=== PATIENT | male | born 1995 | race African-American/Black ===

== ENCOUNTER 2020-12-13 20:33 | Inpatient (IN) ==
[2020-12-13] MEDS ORDERED: DIPH/TET/ACEL PERT BOOSTER VACCINE 0.5 ML VIAL IM ONE (20:41)
[2020-12-13] MEDS ORDERED: ONDANSETRON 4 MG/2 ML VIAL IV STA (20:41)
[2020-12-13] MEDS ORDERED: HYDROmorphone 2 MG/1 ML VIAL IV STA (20:41)
[2020-12-13] MEDS ORDERED: ceFAZolin 1,000 MG VIAL ONE ×2 (20:42→21:27)
[2020-12-13] MEDS ORDERED: HYDROmorphone 2 MG/1 ML VIAL ONE (20:42)
[2020-12-13] MEDS ORDERED: ONDANSETRON 4 MG/2 ML VIAL ONE ×2 (20:42→21:05)
[2020-12-13] MEDS ORDERED: LACTATED RINGERS 1,000 ML IV ONE (20:42)
[2020-12-13 20:48] LABS: Basophils # 0.1 10*3/uL (0.0-0.2); Basophils % 0.5 % (0.0-0.8); Eosinophils # 0.2 10*3/uL (0.0-0.87); Hematocrit 46.4 VOL% (42.0-52.0); Hemoglobin 14.6 GM/DL (14.0-18.0); Immature Granulocytes % 0.6 %; Immature Granulocytes Absolute 0.07 #; Lymphocytes # 6.3 10*3/uL (1.4-4.0); Lymphocytes % 58.4 % (21.2-54.2); Mean Corpuscular HGB Conc 31.5 GM/DL (32-36); Mean Corpuscular Volume 92.6 FL (87-102); Mean Platelet Volume 10.3 FL (9.6-12.0); Neutrophils % 32.5 % (38.7-73.9); Platelet Count 349 T/CUMM (130-400); Red Blood Count 5.01 MC/CUMM (3.8-5.5); Red Cell Distribution Width 12.7 % (9.3-17.3); White Blood Count 10.8 T/CUMM (4-12)
[2020-12-13 20:55] LABS: PT Patient Result 10.9 SECS (10.5-12.0); Partial Thromboplastin Time 20.5 SECS (23.9-33.8)
[2020-12-13] MEDS ORDERED: hydrALAZINE 20 MG/1 ML VIAL IV STA (20:57)
[2020-12-13] MEDS ORDERED: hydrALAZINE 20 MG/1 ML VIAL ONE (20:57)
[2020-12-13] MEDS ORDERED: fentaNYL 100 MCG/2 ML VIAL ONE ×2 (21:02→21:36)
[2020-12-13] MEDS ORDERED: MIDAZOLAM 2 MG/2 ML VIAL ONE (21:02)
[2020-12-13 21:04] LABS: Alanine Aminotransferase 25 U/L (16-61); Albumin 4.4 G/DL (3.4-5.0); Alkaline Phosphatase 61 U/L (45-117); Aspartate Amino Transferase 12 U/L (0-37); Blood Urea Nitrogen 18 MG/DL (7-18); Carbon Dioxide 21 MMOL/L (21-32); Estimated Glom Filtration Rate 130 ML/MIN; Glucose 120 MG/DL (74-106); Osmolality,Calculated 279.5 MOS/KG (273-304); Potassium 3.2 MMOL/L (3.5-5.1); Sodium 139 MMOL/L (136-145); Total Protein 8.2 G/DL (6.4-8.2)
[2020-12-13] MEDS ORDERED: DEXAMETHASONE 4 MG/1 ML VIAL ONE (21:05)
[2020-12-13] MEDS ORDERED: ROCURONIUM 50 MG/5 ML VIAL IV ONE (21:05)
[2020-12-13] MEDS ORDERED: ETOMIDATE 40 MG/20 ML VIAL IV ONE (21:05)
[2020-12-13] MEDS ORDERED: SODIUM CHLORIDE 0.9% 1,000 ML IV ONE (21:05)
[2020-12-13] MEDS ORDERED: LIDOCAINE 2% 5 ML VIAL ONE (21:05)
[2020-12-13] MEDS ORDERED: SUCCINYLCHOLINE 200 MG/10 ML VIAL ONE (21:05)
[2020-12-13 21:10] LABS: Eosinophils 1 % (0-10); Lymphocytes 59 % (20-55); Platelet Estimate Normal; Reactive Lymphocytes 2+; Segmented Neutrophils 33 % (50-85); Total Cells Counted 100
[2020-12-13 21:12] LABS: Bilirubin,Urine Negative (Negative); Blood, Urine Negative (Negative); Glucose,Urine (UA) Negative (Negative); Hyaline Casts,Urine 7 /LPF (0-3); Ketones,Urine 20 mg/dL (Negative); Mucus,Urine Few /LPF (Occasional); Nitrite,Urine Negative (Negative); Protein,Urine 30 MG/DL; Squamous Epithelial Cell,Urine Occasional /HPF (0-10); Urine Appearance CLEAR (Clear); Urine Color Yellow (Yellow); Urine Specific Gravity 1.028 (1.001-1.035)
[2020-12-13] MEDS ORDERED: SODIUM CHLORIDE 0.9% 1,000 ML IV PRN (21:12)
[2020-12-13] MEDS ORDERED: ACETAMINOPHEN 325 MG TABLET PO PRN (21:14)
[2020-12-13 21:28] LABS: Barbiturates Screen,Urine Negative (Negative); Benzodiazepines Screen,Urine Negative (Negative); Cannabinoid Screen,Urine Positive (Negative); Opiate Screen,Urine Negative (Negative); Phencyclidine Screen,Urine Negative (Negative)
[2020-12-13] MEDS ORDERED: SUGAMMADEX 200 MG/2 ML VIAL IV ONE (22:00)
[2020-12-13] MEDS ORDERED: ONDANSETRON 4 MG/2 ML VIAL IV PRN (22:20)
[2020-12-13] MEDS: HYDROmorphone 2 MG/1 ML VIAL IV PRN ×4 (22:25→22:40)
[2020-12-13] MEDS ORDERED: propofoL 200 MG/20 ML VIAL IV ONE (22:28)
[2020-12-13] MEDS: PIPERACILLIN/TAZOBACTAM 3,375 MG in SODIUM CHLORIDE 0.9% 100 ML IV SCH (23:50)
[2020-12-13] MEDS: DEXTROSE 5% LACTATED RINGERS 1,000 ML IV SCH (23:50)
[2020-12-14] MEDS: HYDROmorphone 2 MG/1 ML VIAL IV PRN ×4 (05:08→21:25)
[2020-12-14 07:10] LABS: Basophils % 0.1 % (0.0-0.8); Hematocrit 44.3 VOL% (42.0-52.0); Hemoglobin 14.1 GM/DL (14.0-18.0); Immature Granulocytes % 0.4 %; Immature Granulocytes Absolute 0.05 #; Lymphocytes # 1.2 10*3/uL (1.4-4.0); Lymphocytes % 9.3 % (21.2-54.2); Mean Corpuscular HGB Conc 31.8 GM/DL (32-36); Mean Corpuscular Volume 91.3 FL (87-102); Mean Platelet Volume 9.6 FL (9.6-12.0); Monocytes % 7.5 % (1.7-12.7); Neutrophils % 82.7 % (38.7-73.9); Platelet Count 373 T/CUMM (130-400); Red Blood Count 4.85 MC/CUMM (3.8-5.5); Red Cell Distribution Width 12.7 % (9.3-17.3); White Blood Count 13.1 T/CUMM (4-12)
[2020-12-14 07:39] LABS: Calcium 8.9 MG/DL (8.5-10.1); Osmolality,Calculated 277.5 MOS/KG (273-304)
[2020-12-14] MEDS: PANTOPRAZOLE 40 MG TABLET PO SCH (08:12)
[2020-12-14] MEDS: DOCUSATE SODIUM 100 MG CAPSULE PO SCH ×2 (08:12→21:27)
[2020-12-14] MEDS: PIPERACILLIN/TAZOBACTAM 3,375 MG in SODIUM CHLORIDE 0.9% 100 ML IV SCH ×3 (10:28→23:30)
[2020-12-14] MEDS: ONDANSETRON 4 MG/2 ML VIAL IV PRN ×2 (13:33→21:26)
[2020-12-14] MEDS: METHOCARBAMOL INJ 1,000 MG in SODIUM CHLORIDE 0.9% 100 ML IV SCH ×2 (15:03→21:30)
[2020-12-14] MEDS: DEXTROSE 5% LACTATED RINGERS 1,000 ML IV SCH ×2 (21:31→23:13)
[2020-12-15] MEDS: HYDROmorphone 2 MG/1 ML VIAL IV PRN ×4 (05:06→19:30)
[2020-12-15] MEDS: METHOCARBAMOL INJ 1,000 MG in SODIUM CHLORIDE 0.9% 100 ML IV SCH ×3 (05:06→21:36)
[2020-12-15] MEDS: DEXTROSE 5% LACTATED RINGERS 1,000 ML IV SCH ×2 (05:10→23:52)
[2020-12-15] MEDS: ONDANSETRON 4 MG/2 ML VIAL IV PRN ×2 (05:15→11:11)
[2020-12-15] MEDS: PANTOPRAZOLE 40 MG TABLET PO SCH (08:13)
[2020-12-15] MEDS: DOCUSATE SODIUM 100 MG CAPSULE PO SCH ×2 (08:13→21:28)
[2020-12-15] MEDS: PIPERACILLIN/TAZOBACTAM 3,375 MG in SODIUM CHLORIDE 0.9% 100 ML IV SCH ×3 (08:13→23:52)
[2020-12-15] MEDS ORDERED: ONDANSETRON 4 MG/2 ML VIAL IV PRN (11:24)
[2020-12-15] MEDS: hydrALAZINE 20 MG/1 ML VIAL IV PRN (12:03)
[2020-12-16] MEDS: METHOCARBAMOL INJ 1,000 MG in SODIUM CHLORIDE 0.9% 100 ML IV SCH ×3 (05:22→21:25)
[2020-12-16] MEDS: DEXTROSE 5% LACTATED RINGERS 1,000 ML IV SCH ×3 (05:41→21:24)
[2020-12-16] MEDS: PANTOPRAZOLE 40 MG TABLET PO SCH (08:07)
[2020-12-16] MEDS: DOCUSATE SODIUM 100 MG CAPSULE PO SCH ×2 (08:07→21:00)
[2020-12-16] MEDS: HYDROmorphone 2 MG/1 ML VIAL IV PRN ×3 (08:23→19:08)
[2020-12-16] MEDS: PIPERACILLIN/TAZOBACTAM 3,375 MG in SODIUM CHLORIDE 0.9% 100 ML IV SCH ×2 (08:24→15:19)
[2020-12-16 12:16] LABS: Basophils % 0.5 % (0.0-0.8); Eosinophils # 0.2 10*3/uL (0.0-0.87); Eosinophils % 2.4 % (0.00-10.9); Hematocrit 42.5 VOL% (42.0-52.0); Hemoglobin 13.7 GM/DL (14.0-18.0); Immature Granulocytes % 0.3 %; Immature Granulocytes Absolute 0.02 #; Lymphocytes # 1.9 10*3/uL (1.4-4.0); Lymphocytes % 29.7 % (21.2-54.2); Mean Corpuscular HGB Conc 32.2 GM/DL (32-36); Mean Corpuscular Volume 91.2 FL (87-102); Mean Platelet Volume 9.4 FL (9.6-12.0); Monocytes % 10.4 % (1.7-12.7); Neutrophils % 56.7 % (38.7-73.9); Platelet Count 330 T/CUMM (130-400); Red Blood Count 4.66 MC/CUMM (3.8-5.5); Red Cell Distribution Width 12.4 % (9.3-17.3); White Blood Count 6.5 T/CUMM (4-12)
[2020-12-16 12:36] LABS: Calcium 8.8 MG/DL (8.5-10.1); Osmolality,Calculated 277.4 MOS/KG (273-304); Potassium 3.8 MMOL/L (3.5-5.1)
[2020-12-16] MEDS: hydrALAZINE 20 MG/1 ML VIAL IV PRN (19:08)
[2020-12-17] MEDS: PIPERACILLIN/TAZOBACTAM 3,375 MG in SODIUM CHLORIDE 0.9% 100 ML IV SCH ×3 (00:09→16:35)
[2020-12-17] MEDS: HYDROmorphone 2 MG/1 ML VIAL IV PRN ×3 (01:16→21:51)
[2020-12-17] MEDS: METHOCARBAMOL INJ 1,000 MG in SODIUM CHLORIDE 0.9% 100 ML IV SCH ×3 (06:35→21:43)
[2020-12-17] MEDS: DEXTROSE 5% LACTATED RINGERS 1,000 ML IV SCH ×2 (07:55→14:04)
[2020-12-17] MEDS: DOCUSATE SODIUM 100 MG CAPSULE PO SCH ×3 (08:43→21:43)
[2020-12-17] MEDS: PANTOPRAZOLE 40 MG TABLET PO SCH (08:44)
[2020-12-17] MEDS: hydrALAZINE 20 MG/1 ML VIAL IV PRN (15:45)
[2020-12-18] MEDS: PIPERACILLIN/TAZOBACTAM 3,375 MG in SODIUM CHLORIDE 0.9% 100 ML IV SCH ×2 (00:46→08:29)
[2020-12-18] MEDS: DEXTROSE 5% LACTATED RINGERS 1,000 ML IV SCH ×2 (02:55→05:56)
[2020-12-18] MEDS: METHOCARBAMOL INJ 1,000 MG in SODIUM CHLORIDE 0.9% 100 ML IV SCH (05:37)
[2020-12-18] MEDS: PANTOPRAZOLE 40 MG TABLET PO SCH (08:29)
[2020-12-18] MEDS: DOCUSATE SODIUM 100 MG CAPSULE PO SCH (08:29)
[2020-12-18] MEDS: HYDROmorphone 2 MG/1 ML VIAL IV PRN (08:41)
[2020-12-18 11:10] VITALS: BP 138/88
== END 2020-12-18 14:10 | disposition home or self-care (01) | DRG 579 ==
LOC: EDUNIT# → EDBD → N.ED 20:33 → N.3E 21:14
PROVIDERS: ADMIT Student in an Organized Health Care Education/Training Program; ATTEND Student in an Organized Health Care Education/Training Program